=== PATIENT | male | born 1945 | race Caucasian/White ===

== ENCOUNTER → 2021-10-18 11:38 | Outpatient (CLI) | payer MEDICARE, BC, SELFPAY ==
--- NOTE | 2021-10-18 11:41 | DI.RAD.S_ITS ---
PROCEDURE: XR FINGER LT MIN 2V INDICATIONS: Finger injury. TECHNIQUE: AP hand, 2 views of the 5th finger(s) acquired. COMPARISON: None. FINDINGS: Bones: No fractures or dislocations. No suspicious bony lesions. 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 Mild bony erosion at the base of the 5th middle phalanx. Cannot rule out inflammatory arthritis. Soft tissues: No suspicious soft tissue calcifications. IMPRESSION: No acute osseous abnormalities. If clinical symptoms persist or clinical suspicion for pathology is high, a repeat examination in 7-10 days, or advanced imaging such as CT or MRI is suggested for further evaluation. Dictated by: Marisela Steen M.D. on 10/18/2021 at 12:43 Approved by: Marisela Steen M.D. on 10/18/2021 at 12:46
== END ==
PROVIDERS: Referring Provider Nurse Practitioner Critical Care Medicine; Visit Provider Nurse Practitioner Critical Care Medicine
DX: M79.645 Pain in left finger(s) (principal)
CPT/HCPCS: 73140